=== PATIENT | female | born 1950 | race Caucasian/White ===

== ENCOUNTER → 2024-04-03 | Day surgery (SDC) | payer MEDICARE, BC ==
[~2024-04-03] VITALS: Ht 172.7 cm; Wt 77.1 kg
[~2024-04-03] MED LIST: ACETAMINOPHEN 325MG TABLET PO PRN; ASPI-1497 PO; ASPIRIN 325MG TABLET PO SCH; ASPIRIN 81MG EC TABLET PO SCH; ATROPINE SULFATE 1MG/10ML SYR IV PRN; CLONIDINE 0.1MG TABLET PO PRN; DEXTROSE 50% WATER 50ML SYRINGE IV PRN; DIPHENHYDRAMINE 50MG/ML VIAL ONE; DOCUSATE SODIUM 100MG CAPSULE PO PRN; DULA0.75 SQ; ENOXAPARIN 40MG/0.4ML SYR SUBCUT SCH; FAMOTIDINE 20MG TABLET PO SCH; FENTANYL CITRATE/PF 50MCG/ML 2ML VIAL ONE; GUAIFENESIN 200MG/10ML SUGAR FREE UDC PO PRN; HEPARIN 1000 UNITS/ML 10ML ONE; INSULIN LISPRO 100 UNITS/ML SUBCUT SCH; IODIXANOL 320MG/ML 100 ML BOTTLE IV ONE; IPRATROPIUM/ALBUTEROL 0.5-3(2.5)MG/3ML NEB NEB PRN; LIDOCAINE HCL 1% 10 MG/ML 10ML VIAL ONE; MAGNESIUM/ALUMINUM HYDROXIDE/SIMETHICONE 30ML UDC PO PRN; METO25TA6 PO; METOPROLOL TARTRATE 25MG TABLET PO SCH; MIDAZOLAM HCL 2 MG/2 ML VIAL ONE; NITROGLYCERIN 0.4MG TABLET SL SL PRN; ONDANSETRON HCL 4MG/2ML INJ IV SCH; VERAPAMIL HCL 2.5 MG/1 ML 2ML VIAL IV ONE; ZOLPIDEM TARTRATE 5MG TABLET PO PRN
[2024-04-03 07:38] LABS: BASOPHILS % 0.8 % (0.0-2.0); EOSINOPHILS % 1.8 % (0.0-5.0); HEMOGLOBIN. 16.2 g/dL (12.0-16.0); LYMPHOCYTES % 26.4 % (20.0-50.0); MEAN CORPUSCULAR HEMOGLOBIN 28.4 pg (28.0-32.0); MEAN CORPUSCULAR HGB CONC 31.8 g/dL (31.0-37.0); MEAN CORPUSCULAR VOLUME 89.3 fL (81.0-99.0); MONOCYTES % 9.5 % (2.0-8.0); NEUTROPHILS % 61.5 % (40.0-76.0); PLATELET 286 x1000/uL (130-400); RED BLOOD CELL COUNT 5.71 mill/uL (4.2-5.4); RED CELL DISTRIBUTION WIDTH 14.6 % (11.6-14.6); WHITE BLOOD COUNT 5.6 x1000/uL (4.5-11.0)
[2024-04-03 07:59] LABS: POTASSIUM 4.2 mEq/L (3.5-5.1)
[2024-04-03 08:05] LABS: CREATININE 1.2 mg/dL (0.6-1.0)
[2024-04-03 08:08] LABS: PROTHROMBIN TIME 11.6 sec (9.6-11.0)
[2024-04-03] MEDS: SODIUM CHLORIDE 0.45% 500 ML IV ONE (08:20)
[2024-04-03] MEDS: ONDANSETRON HCL 4MG/2ML INJ IV PRN (15:18)
[2024-04-03] MEDS: BLOOD SUGAR DIAGNOSTIC STRIP TEST SCH (15:42)
== END | disposition home or self-care (01) ==
LOC: CCL 07:02
PROVIDERS: ATTEND Internal Medicine
DX: I25.110 Atherosclerotic heart disease of native coronary artery with unstable angina pectoris (principal); I21.9 Acute myocardial infarction, unspecified; I11.0 Hypertensive heart disease with heart failure; I50.23 Acute on chronic systolic (congestive) heart failure; E11.9 Type 2 diabetes mellitus without complications; I25.2 Old myocardial infarction; I34.0 Nonrheumatic mitral (valve) insufficiency; I48.91 Unspecified atrial fibrillation; Z79.82 Long term (current) use of aspirin; Z79.899 Other long term (current) drug therapy; Z82.3 Family history of stroke; Z82.49 Family history of ischemic heart disease and other diseases of the circulatory system; Z95.5 Presence of coronary angioplasty implant and graft; Z96.642 Presence of left artificial hip joint; Z98.890 Other specified postprocedural states
CPT/HCPCS: 93458; 80048; 82962; 85025; 85610; 36415; 93306; 93880; 93970; 93005; C1893; C1769 ×2; J3010; Q9967; J1200; J1644 ×2; J3490 ×2; J2250; J2405; C1887; 99152; G0500